=== PATIENT | female | born 1975 | race Caucasian/White ===

== ENCOUNTER 2022-03-13 10:13 | Emergency (ER) | payer OTHER ==
[2022-03-13] MEDS ORDERED: Ketorolac Tromethamine 30 MG/ML VIAL ONE (12:33)
[2022-03-13] MEDS ORDERED: Acetaminophen 500 MG TAB ONE (12:33)
== END 2022-03-13 14:14 | disposition home or self-care (01) ==
LOC: CSHERS 10:13
DX: S80.212A Abrasion, left knee, initial encounter (principal); M79.671 Pain in right foot; X50.1XXA Overexertion from prolonged static or awkward postures, initial encounter
CPT/HCPCS: J1885